=== PATIENT | female | born 1980 | race Caucasian/White ===

== ENCOUNTER 2016-12-02 07:41 | Inpatient (IN) | END 2016-12-04 14:50 | disposition left against medical advice (07) | DRG 894 | DX: F10.239 Alcohol dependence with withdrawal, unspecified (principal); Z68.43 Body mass index [BMI] 50.0-59.9, adult; I10 Essential (primary) hypertension; E66.9 Obesity, unspecified; I87.8 Other specified disorders of veins; Y90.2 Blood alcohol level of 40-59 mg/100 ml; Z59.0 Homelessness ==

== ENCOUNTER 2017-03-08 11:02 | Inpatient (IN) | END 2017-03-13 15:00 | disposition home or self-care (01) | DRG 394 ==

== ENCOUNTER 2017-06-04 17:02 | Inpatient (IN) | END 2017-07-09 08:08 | disposition EXP | DRG 441 ==